=== PATIENT | male | born 1960 | race Caucasian/White ===

== ENCOUNTER 2020-09-10 08:25 | Emergency (ER) | payer OTHER ==
[2020-09-10] MEDS ORDERED: Ondansetron 4 MG/2 ML SDV IVPUSH ONE (09:03)
[2020-09-10] MEDS ORDERED: Famotidine 20 MG/2 ML SDV IVPUSH ONE (09:03)
[2020-09-10] MEDS ORDERED: Alum Hydrox/Mag Hydrox/Simeth 15 ML, Lidocaine 2% 5 ML PO ONE ×2 (09:03)
[2020-09-10] MEDS ORDERED: Aspirin 81 MG Tab.Chew PO ONE (09:03)
--- NOTE | 2020-09-10 09:37 | CR ---
Indication: Chest pain Comparison: None available. Technique: Single AP view chest Findings: There is hyperinflation and chronic interstitial change with questionable airspace opacity in the central left upper lobe. The cardiac silhouette is mildly prominent. The bony thorax is grossly intact. Impression: Hyperinflation and chronic interstitial changes with somewhat masslike airspace opacity in the left upper lobe which may represent a developing infiltrate and underlying pulmonary masses difficult to exclude. Follow-up with CT of the chest with contrast if there remains persistent clinical concern. Dictated by Pj Boyle MD @ 09/10/2020 9:36:[address] Pj Boyle @ Sep 10 2020 9:36AM
[2020-09-10 09:43] LABS: BLOOD UREA NITROGEN,BUN 11 mg/dL (7.0-18.0); CARBON DIOXIDE,CO2 23.5 mmol/L (21.0-32.0); CHLORIDE,CL 102 mmol/L (98-107); GLUCOSE RANDOM 125 mg/dL (74-106); POTASSIUM,K 3.7 mmol/L (3.5-5.1); SODIUM,NA 137 mmol/L (136-148)
--- NOTE | 2020-09-10 11:56 | CT ---
INDICATION: Masslike airspace infiltrate in the left upper lobe on chest x-ray. TECHNIQUE: Volumetric helical scanning of the thorax was performed with 75 cc of Isovue 370 nonionic contrast material IV. Coronal and sagittal reconstructions were obtained. COMPARISON: Chest x-ray 09/10/2020. FINDINGS: Small patchy ground-glass infiltrates are scattered throughout both lungs. No mass is evident. No airway abnormality or pleural effusions evident. No mediastinal or hilar lymphadenopathy is demonstrated. The heart size is normal. Images of the upper abdomen demonstrate fatty change in liver and mild splenomegaly The heart size is normal. Images of the upper abdomen demonstrate a fatty, presumably cirrhotic liver. The portal vein is enlarged to 1.7 cm in diameter. A small recanalized umbilical vein is noted and the spleen is mildly enlarged. Colonic diverticulosis is noted. IMPRESSION: 1. No lung mass evident. 2. Small patchy ground-glass infiltrates scattered throughout both lungs, suspicious for COVID-19 pneumonia. 3. Fatty, presumably cirrhotic liver. 4. Portal venous hypertension manifested as mild splenomegaly, portal vein enlargement and recanalized umbilical vein. Please note that all CT scans at this facility use dose modulation, iterative reconstruction, and/or weight-based dosing when appropriate to reduce radiation dose to as low as reasonably achievable. Dictated by Derik Dorantes MD @ 09/10/2020 11:55:[address] Derik Dorantes @ Sep 10 2020 11:55AM
--- NOTE | 2020-09-10 12:38 | EDM.PDOC ---
ED HPI GENERAL MEDICAL PROBLEM - General Chief Complaint: Abdominal Pain Stated Complaint: STOMACH PAIN Time Seen by Provider: 09/10/20 08:49 - History of Present Illness INITIAL COMMENTS - FREE TEXT/NARRATIVE: CHIEF COMPLAINT(S): Abdominal pain HISTORY OF PRESENT ILLNESS: This is a 60-year-old man with a past medical history of hypertension who comes to the emergency department with a chief complaint of abdominal pain. The patient states that for approximately 1 week now he has been experiencing nausea and upset stomach. He states that it is come on gradually. He states that he feels pain in the left upper quadrant and affect gastric pain which is worsened by eating. He states that usually when he does this he uses apple cider vinegar and took it for 2 days however it became more constant after that. He denies any vomiting. He rates his pain as 3 out of 10 without any radiation. He denies any associated symptoms other than nausea. He denies any hematemesis, bilious emesis, melena or hematochezia. He denies any chest pain or shortness of breath. He denies any fevers or chills. He denies any history of GERD, gastritis, excessive alcohol use. He is not yet tried any pain medication therefore there has been no relieving factors. REVIEW OF SYSTEMS: Constitutional: Denies fever, chills. Eyes: Denies eye pain Ears, Nose, Mouth, & Throat: Denies earache Cardiovascular: Denies chest pain Respiratory: Denies shortness of breath Gastrointestinal: Positive for epigastric, left upper quadrant pain and nausea. Denies vomiting, diarrhea, hematochezia, hematemesis, bilious emesis Genitourinary: Denies hematuria Skin:Denies a rash MSK: Denies joint pain Neurological: Denies blurred vision Psychiatric: Denies depression PAST MEDICAL HISTORY: As per history of present illness and as reviewed below otherwise noncontributory. SURGICAL HISTORY: As per history of present illness and as reviewed below otherwise noncontributory. SOCIAL HISTORY: As per history of present illness and as reviewed below otherwise noncontributory. FAMILY HISTORY: As per history of present illness and as reviewed below otherwise noncontributory. EXAMINATION OF ORGAN SYSTEMS/BODY AREAS: Constitutional: Blood pressure is 143/106, heart rate 94, respiratory rate 17 with an oxygen saturation 9 7% on room air. Temperature 36.4 General: Overall well-appearing man who is in no acute distress. Psychiatric: Appropriate mood and affect. Eyes: No scleral icterus or conjunctival erythema ENMT: Moist mucous membranes. No pharyngeal erythema Cardiovascular: Regular, rate, and rhythm. No gallops, murmurs, or rubs. Bilateral upper extremity pulses symmetric and intact. No peripheral edema. No JVD. Respiratory: Lungs clear to auscultation bilaterally. No wheezes, rales, or rhonchi. Gastrointestinal: Soft, tenderness to palpation in the left upper quadrant, nondistended. No rebound or guarding. Normoactive bowel sounds Genitourinary: No suprapubic tenderness no CVA tenderness Musculoskeletal: Normal range of motion. Skin: No lesions or abrasions. Neurological: Alert, GCS 15 MEDICAL DECISION MAKING AND COURSE IN THE ED WITH INTERPRETATION/REVIEW OF DIAGNOSTIC STUDIES: This is a 60-year-old man with a past medical history of hypertension who comes to the emergency department with 1 week of worsening epigastric and left upper quadrant pain who has normal vitals. At this time this could be an atypical presentation of ACS given his age will obtain a cardiac work-up. EKG was obtained which not reveal any acute signs of ischemia. I do believe this is likely secondary to gastritis or peptic ulcer disease given the exacerbation by apple cider vinegar, hot tea and food. We will provide the patient with a GI cocktail, famotidine, and aspirin. We will provide the patient with Zofran for nausea. Will obtain a chest x-ray. Laboratory: CBC reveals leukopenia with a WBC count of 2.66 and thrombocytopenia at 127. Otherwise unremarkable. CMP reveals hyperglycemia at 125 and hypocalcemia at 8.2 otherwise unremarkable. Troponin is negative. The radiological images were viewed by myself along with reading the report from the radiologist. Chest x-ray reveals hyperinflation and chronic interstitial changes with somewhat masslike airspace opacity in the left upper lobe which may represent a developing infiltrate or underlying pulmonary mass. Recommend CT. On reevaluation the patient stated that his pain had improved. I discussed with him at this time I had like to obtain a CT. He was amenable to this plan. The radiological images were viewed by myself along with reading the report from the radiologist. CT scan of the chest with contrast reveals no lung mass. There is small patchy groundglass infiltrates throughout both lungs suspicious for COVID-19. There is cirrhotic/fatty liver. Portal venous hypertension manifested as mild splenomegaly. After imaging I did offer a Covid swab given the findings. We did discuss the changes. He did not want to get swab at this time and stated that he would quarantine. I did discuss them at this time that I do believe his symptoms are likely due to peptic ulcer disease or gastritis. I did provide the patient with a prescription for omeprazole and he is to follow-up with primary care physician. I did refill the patient's blood pressure medications as he stated he was out. He was amenable to discharge at this time and had no further questions. He was given strict return precautions. DISPOSITION: The patient was discharged home in stable condition. The patient will follow up with primary care physician in 3 to 5 days CONDITION: Fair PROCEDURES: None FINAL IMPRESSION(S)/DIAGNOSES: 1. Acute left upper abdominal pain likely secondary to peptic ulcer disease versus gastritis 2. Acute bilateral airspace opacities likely secondary to COVID-19 Trung Marquez M.D. Abdominal Pain Score (Numeric/FACES): 3 - Related Data Allergies Allergy/AdvReac Type Severity Reaction Status Date / Time acetaminophen Allergy Nausea Verified 09/10/20 09:28 [From Darvocet-N] propoxyphene Allergy Nausea Verified 09/10/20 09:28 [From Darvocet-N] Home Meds: Home Meds Omeprazole 20 mg PO DAILY #30 capsule. 09/10/20 [Rx] Simvastatin 20 mg PO DAILY 09/10/20 [History] Simvastatin [Zocor] 20 mg PO BEDTIME #30 tablet 09/10/20 [Rx] amLODIPine [Norvasc] 5 mg PO DAILY 09/10/20 [History] amLODIPine [Norvasc] 5 mg PO DAILY #30 tab 09/10/20 [Rx] atenoloL [Atenolol] 100 mg PO DAILY 09/10/20 [History] atenoloL [Atenolol] 100 mg PO DAILY #30 tablet 09/10/20 [Rx] lisinopriL [Lisinopril] 20 mg PO DAILY 09/10/20 [History] lisinopriL [Lisinopril] 20 mg PO DAILY #30 tablet 09/10/20 [Rx] Past Medical History Cardiovascular History: Reports: High Cholesterol, Hypertension - Infectious Disease History Infectious Disease History: Reports: None Social & Family History - Family History Family Medical History: No Pertinent Family History - Tobacco Use Tobacco Use Status *Q: Never Tobacco User - Recreational Drug Use Recreational Drug Use: No ED ROS GENERAL - Review of Systems Review Of Systems: See Below ED EXAM, GENERAL - Physical Exam Exam: See Below Course - Vital Signs Last Recorded V/S: Last Vital Signs Temp 36.4 C 09/10/20 08:39 Pulse 85 09/10/20 12:15 Resp 17 09/10/20 12:15 BP 158/107 H 09/10/20 12:15 Pulse Ox 98 09/10/20 12:15 - Orders/Labs/Meds Labs: Laboratory Tests 09/10/20 09/10/20 09/10/20 Range/Units 08:50 08:50 11:55 WBC 2.66 L (4.0-11.0) K/uL RBC 4.88 (4.50-5.90) M/uL Hgb 14.8 (13.0-17.0) g/dL Hct 42.2 (38.0-50.0) % MCV 86.5 (80.0-98.0) fL MCH 30.3 (27.0-32.0) pg MCHC 35.1 (31.0-37.0) g/dL RDW Std Deviation 41.0 (28.0-62.0) fl RDW Coeff of Mami 13 (11.0-15.0) % Plt Count 127 L (150-400) K/uL MPV 9.00 (7.40-12.00) fL Add Manual Diff YES Neutrophils % (Manual) 65 (48.0-80.0) % Band Neutrophils % 4 % Lymphocytes % (Manual) 19 (16.0-40.0) % Monocytes % (Manual) 9 (0.0-15.0) % Eosinophils % (Manual) 2 (0.0-7.0) % Basophils % (Manual) 1 (0.0-1.5) % Nucleated RBC % 0.0 /100WBC Absolute Seg Neuts 1.7 (1.4-5.7) Band Neutrophils # 0.1 Lymphocytes # (Manual) 0.5 L (0.6-2.4) Monocytes # (Manual) 0.2 (0.0-0.8) Eosinophils # (Manual) 0.1 (0.0-0.7) Basophils # (Manual) 0.0 (0.0-0.1) Nucleated RBCs # 0 K/uL Sodium 137 (136-148) mmol/L Potassium 3.7 (3.5-5.1) mmol/L Chloride 102 (98-107) mmol/L Carbon Dioxide 23.5 (21.0-32.0) mmol/L BUN 11 (7.0-18.0) mg/dL Creatinine 1.1 (0.8-1.3) mg/dL Est Cr Clr Drug Dosing 73.74 mL/min Estimated GFR (MDRD) > 60.0 ml/min Glucose 125 H (74-106) mg/dL Calcium 8.2 L (8.5-10.1) mg/dL Magnesium 1.9 (1.8-2.4) mg/dL Total Bilirubin 0.8 (0.2-1.0) mg/dL AST 31 (15-37) IU/L ALT 50 (14-63) IU/L Alkaline Phosphatase 86 (46-116) U/L Troponin I < 0.050 < 0.050 (0.000-0.056) ng/mL Total Protein 7.5 (6.4-8.2) g/dL Albumin 3.5 (3.4-5.0) g/dL Globulin 4.0 (2.6-4.0) g/dL Albumin/Globulin Ratio 0.9 (0.9-1.6) Meds: Medications Discontinued Medications Generic Name Dose Route Start Last Admin Trade Name Charlie PRN Reason Stop Dose Admin Aspirin 324 mg 09/10/20 09:03 09/10/20 09:23 Aspirin 81 Mg Tab.Chew PO 09/10/20 09:04 324 mg ONETIME ONE Administration Al Hydroxide/Mg Hydroxide 15 0 ml 09/10/20 09:03 09/10/20 09:21 ml/ Lidocaine HCl 5 ml PO 09/10/20 09:04 1 each ONETIME ONE Administration Famotidine 20 mg 09/10/20 09:03 09/10/20 09:23 Famotidine 20 Mg/2 Ml Sdv IVPUSH 09/10/20 09:04 20 mg ONETIME ONE Administration Iopamidol 75 ml 09/10/20 19:28 09/10/20 19:29 Iopamidol 755 Mg/Ml 500 Ml Multipack Bottle IVPUSH 09/10/20 19:29 75 ml ONETIME STA Administration Ondansetron HCl 4 mg 09/10/20 09:03 09/10/20 09:23 Ondansetron 4 Mg/2 Ml Sdv IVPUSH 09/10/20 09:04 4 mg ONETIME ONE Administration Departure - Departure Time of Disposition: 12:37 Disposition: Home, Self-Care 01 Condition: Fair Clinical Impression: Gastritis, Peptic ulcer, COVID-19 - Discharge Information *PRESCRIPTION DRUG MONITORING PROGRAM REVIEWED*: No *COPY OF PRESCRIPTION DRUG MONITORING REPORT IN PATIENT CONCHA: No Prescriptions: atenoloL [Atenolol] 100 mg PO DAILY #30 tablet lisinopriL [Lisinopril] 20 mg PO DAILY #30 tablet amLODIPine [Norvasc] 5 mg PO DAILY #30 tab Omeprazole 20 mg PO DAILY #30 capsule. Simvastatin [Zocor] 20 mg PO BEDTIME #30 tablet Instructions: COVID-19 Frequently Asked Questions, Gastritis, Adult, [id number], Peptic Ulcer, [id number], What You Should Know About COVID-19 to Protect Yourself and Others - CDC, COVID-19: Quarantine vs. Isolation - CDC Referrals: PCP,None [Primary Care Provider] - Forms: ED Department Discharge Additional Instructions: You were evaluated today on an emergent basis. At this time your work-up has been negative. However your white blood cell count was low in addition to your platelets. I would like you to follow-up with your primary care physician for further work-up on this. I do believe your symptoms today were likely secondary to ulcers or gastritis. I recommend you refrain from using NSAIDs. I am going to start you on a medication called omeprazole which you need to take daily. I did refill your hypertension medications. We will also make a cardiology follow-up appointment with you. In addition, your CT scan shows evidence of COVID-19 pneumonia. At this time you are asymptomatic however we do recommend that she do a 10-day quarantine. Please keep your hands clean with soap and water. If you become short of breath or have any chest pain please return to the emergency department. If you have any new or worsening symptoms please return to the emergency department. [facility] [address] [place] [address] [facility] [address] [place] [address] The patient is informed of any results of their evaluation and diagnostic workup and all questions are answered. They are given discharge instructions and return precautions. The patient is stable for discharge. The patient states they understand and agree with the plan and that they will return if their symptoms get worse or if they have any new concerns. The following information is given to patients seen in the emergency department who are being discharged to home. This information is to outline your options for follow-up care. We provide all patients seen in our emergency department with a follow-up referral. The need for follow-up, as well as the timing and circumstances, are variable depending upon the specifics of your emergency department visit. If you don't have a primary care physician on staff, we will provide you with a referral. We always advise you to contact your personal physician following an emergency department visit to inform them of the circumstance of the visit and for follow-up with them and/or the need for any referrals to a consulting specialist. The emergency department will also refer you to a specialist when appropriate. This referral assures that you have the opportunity for follow-up care with a specialist. All of these measure are taken in an effort to provide you with optimal care, which includes your follow-up. Under all circumstances we always encourage you to contact your private physician who remains a resource for coordinating your care. When calling for follow-up care, please make the office aware that this follow-up is from your recent emergency room visit. If for any reason you are refused follow-up, please contact the [facility] Emergency Department at and asked to speak to the emergency department charge nurse. Sepsis Event Note (ED) - Evaluation Sepsis Screening Result: No Definite Risk
[2020-09-10] MEDS ORDERED: Iopamidol 755 MG/ML 500 ML Multipack Bottle IVPUSH STA (19:28)
--- NOTE | 2020-09-11 18:38 | PCM.EKG ---
#1 Interpretation EKG Date: 09/10/20 Time: 08:49 Rhythm: NSR Rate (Beats/Min): 88 [place]: Normal P-Wave: Present QRS: Normal ST-T: Normal (t wave inversions III,aVF) QT: Normal Comparison: NA - No Prior EKG EKG Interpretation Comments: Sinus Rhythm with nonspecific T wave inversion
== END 2020-09-10 12:55 | disposition home or self-care (01) ==
LOC: MW.ED 08:25
DX: U07.1 COVID-19 (principal); K27.9 Peptic ulcer, site unspecified, unspecified as acute or chronic, without hemorrhage or perforation; K29.70 Gastritis, unspecified, without bleeding; E78.00 Pure hypercholesterolemia, unspecified; I10 Essential (primary) hypertension; Z88.6 Allergy status to analgesic agent; Z79.899 Other long term (current) drug therapy
CPT/HCPCS: 36415; 71045; 71260; 80053; 83735; 84484; 85025; 93005; 96374; 96375; 99284; A9270; J2405; J3490; Q9967